=== PATIENT | female | born 1980 | race Caucasian/White ===

== ENCOUNTER 2016-06-23 16:14 | Emergency (ER) | payer OTHER ==
[~2016-06-23] VITALS: Ht 162.6 cm; Wt 96.6 kg
[~2016-06-23 16:14] MED LIST: CYAN1LOZ2 PO; HYDR-5688 PO; NORT10CA2 PO; TOPI50TA24 PO; [UNRECOGNIZED DRUG - CODE]
[2016-06-23 16:24] VITALS: TEMP 37.2; Ht 162.6 cm; Wt 96.6 kg
[2016-06-23] MEDS ORDERED: ASPI325T39 PO (16:57)
[2016-06-23] MEDS ORDERED: TOPI25TA99 PO (16:57)
[2016-06-23] MEDS ORDERED: GABA1CAP5 PO (16:57)
[2016-06-23] MEDS ORDERED: CYAN500T PO (16:57)
[2016-06-23] MEDS ORDERED: FRS/40 PO (16:57)
[2016-06-23] MEDS ORDERED: ATOR10TA88 PO (16:57)
[2016-06-23] MEDS ORDERED: PRLSR20 PO (16:57)
[2016-06-23] MEDS ORDERED: PARO1TAB27 PO (16:57)
[2016-06-23] MEDS ORDERED: LEVO25TA5 PO (16:57)
[2016-06-23] MEDS ORDERED: NORT50CA PO (16:57)
[2016-06-23 17:40] LABS: BASO % 0.3 %; BASO ABS # 0.03 K/uL (0-0.2); COMPLETE YES; HEMATOCRIT 41.7 % (37-47); IG% 0.2 %; LYMPH % 32.1 %; LYMPH ABS # 3.09 K/uL (1.2-3.4); MEAN CELL VOLUME 85.5 fL (80-100); MEAN CORPUSCULAR HEMOGLOBIN 30.1 pg (25-34); MEAN CORPUSCULAR HGB CONC 35.3 g/dl (32-36); MEAN PLATELET VOLUME 9.6 fL (7.4-10.4); MONO % 8.3 %; NEUT % 57.1 %; PLATELET COUNT 431 K/uL (130-400); RED BLOOD COUNT 4.88 M/uL (4.2-5.4); WHITE BLOOD COUNT 9.62 K/uL (4.8-10.8)
[2016-06-23 17:49] LABS: INR 0.9 (0.9-1.1); PARTIAL THROMBOPLASTIN RATIO 1.1
[2016-06-23 17:58] LABS: ALT/SGPT 25 U/L (12-78); AST/SGOT 12 U/L (15-37); BLOOD UREA NITROGEN 17 mg/dl (7-18); BUN/CREATININE RATIO 17.1 (10-20); CALCIUM 8.5 mg/dl (8.5-10.1); CARBON DIOXIDE 21 mmol/L (21-32); CHLORIDE 108 mmol/L (98-107); CREATININE 0.98 mg/dl (0.60-1.20); GLUCOSE 79 mg/dl (70-99); POTASSIUM 3.8 mmol/L (3.5-5.1); SODIUM 139 mmol/L (136-145)
[2016-06-23 18:06] LABS: ALB/GLOB RATIO 0.8 (0.9-2); ALKALINE PHOSPHATASE 71 U/L (45-117)
[2016-06-23] MEDS ORDERED: OPTIRAY 320 IV PRN (18:30)
--- NOTE | 2016-06-23 18:35 | DIAGNOSTIC IMAGING REPORT ---
CT ANGIOGRAM OF THE CHEST CLINICAL HISTORY: Tachypnea, shortness of breath, difficulty breathing, clotting disorder. COMPARISON STUDY: No previous studies for comparison. TECHNIQUE: Following the IV administration of 79 mL of Optiray-320, CT angiogram of the thorax was performed from the thoracic inlet to the lung bases utilizing the pulmonary embolus protocol. Images are reviewed in the axial, sagittal, and coronal planes. IV contrast was administered without complication. MIP imaging was performed. CT DOSE: 590.75 mGy.cm FINDINGS: No pathologically enlarged axillary mediastinal or hilar lymph nodes were visualized. There was no evidence of thoracic aortic dilatation. There were no pulmonary artery filling defects to indicate acute pulmonary embolism. No pleural effusions are visualized. Dependent groundglass opacities are likely atelectatic. IMPRESSION: 1. No CT evidence of acute pulmonary embolism 2. Dependent atelectatic changes. 3. No evidence of pneumonia. No pleural effusions. No pneumothorax. Electronically signed by: Steven Romero M.D. 06/23/2016 6:33 PM Dictated Date/Time: 06/23/2016 6:30 PM
[2016-06-23] MEDS ORDERED: LORAZEPAM 0.5 MG TAB SL STA (18:55)
[2016-06-23 19:24] LABS: PREG INTERNAL NEGATIVE QC NEG CLEAR BACKGROUND; PREG INTERNAL POSITIVE QC POS CONTROL LINE
[2016-06-23] MEDS ORDERED: LORA-741 PO (20:40)
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
[2016-06-23 20:47] VITALS: BP 117/85; PULSE 78; O2SAT 95
[2016-07-04 09:29] LABS: ISTAT CREATININE 0.9 mg/dl (0.6-1.3); ISTAT IONIZED CALCIUM 1.13 mmol/l (1.12-1.32)
== END 2016-06-23 20:58 | disposition home or self-care (01) ==
LOC: C.EDB 16:19 → C.EDC 20:58
DX: R00.2 Palpitations (principal); R06.02 Shortness of breath; F41.9 Anxiety disorder, unspecified; F32.9 Major depressive disorder, single episode, unspecified; Z87.820 Personal history of traumatic brain injury; Z86.711 Personal history of pulmonary embolism; Z87.81 Personal history of (healed) traumatic fracture; Z87.891 Personal history of nicotine dependence; Z90.49 Acquired absence of other specified parts of digestive tract; Z79.82 Long term (current) use of aspirin; Z79.899 Other long term (current) drug therapy; Z91.040 Latex allergy status